=== PATIENT | female | born 1975 | race Caucasian/White ===

== ENCOUNTER 2020-05-19 08:20 | Outpatient (CLI) | payer OTHER ==
--- NOTE | 2020-05-28 14:10 | Mammography Report ---
BILATERAL DIGITAL SCREENING MAMMOGRAM 3D/2D: 05/19/2020 CLINICAL: Routine screening. No prior exams were available for comparison. The tissue of both breasts is heterogeneously dense. T his may lower the sensitivity of mammography. No significant masses, calcifications, or other findings are seen in either breast. IMPRESSION: NEGATIVE There is no mammographic evidence of malignancy. A 1 year screening mammogram is recommended. This exam was interpreted at Station ID: [id number]. NOTE: For mammograms, a report in lay terms will be sent to the patient. Approximately 15% of breast malignancies will not be visualized mammographically. In the management of a palpable breast mass, a negative mammogram must not discourage biopsy of a clinically suspicious lesion. Electronically Signed By: Patrick Glover M.D., jr/janie:05/28/2020 08:14:13 ACR BI-RADS Category 1: Negative 3341F PARENCHYMAL PATTERN: (D) - The breast(s) demonstrate(s) heterogeneously dense fibroglandular priya da silva. BI-RADS CATEGORY: (1) - 1 RECOMMENDATION: (ANNUAL) - Recommend routine annual screening mammography. [id number] 1 year screening LATERALITY: (B)
== END 2020-05-19 08:21 | disposition home or self-care (01) ==
LOC: DI 08:20
DX: Z12.31 Encounter for screening mammogram for malignant neoplasm of breast (principal)

== ENCOUNTER 2022-05-29 07:11 | Outpatient (CLI) | payer OTHER ==
--- NOTE | 2022-05-31 09:06 | MRI Report ---
PROCEDURE: SHOULDER WO - RT INDICATIONS: RIGHT SHOULDER PAIN TECHNIQUE: Noncontrast oblique coronal T2 fast spin echo with fat saturation, oblique sagittal T1 spin echo and T2 fast spin echo with fat saturation, axial T1 spin echo and T2 fast spin echo with fat saturation t hrough the shoulder. COMPARISON: None. FINDINGS: Image quality: Excellent. Rotator cuff: There is mild T2 signal elevation within the supraspinatus and infraspinatus tendons at the humeral insertion sites extending the muscular tendinous junction, indicating tendinopathy. Ther e is low-grade intrasubstance and articular surface tearing of the anterior and mid supraspinatus ten dons at the humeral insertion sites extending the muscular tendinous junction. There is low-grade par tial thickness intrasubstance tearing of the anterior infraspinatus tendon at the muscular tendinous junction. The subscapularis and teres minor tendons are intact. Bones and bursae: No bone marrow contusions or fractures. There is moderate acromioclavicular joint degeneration. The acromion demonstrates conventional anatomy, without an os acromiale. No pathologi c subacromial/subdeltoid bursal fluid is present. Capsule and soft tissues: In the absence of intra-articular contrast, the labrum and glenohumeral li gaments appear intact. The long head of the biceps tendon demonstrates normal location and split-typ e tearing. The rotator interval appears normal, without fibrosis. The coracohumeral ligament is norm al in thickness. IMPRESSION: 1. Supraspinatus and infraspinatus tendinopathy. Superimposed low-grade partial-thickness tearing of the supraspinatus and infraspinatus tendons. No full-thickness rotator cuff tear. 2. Split-type tearing of the biceps tendon. 3. Acromioclavicular joint osteoarthritis. Reviewed by: Natalie Lemos MD on 05/31/2022 9:05 AM PST Approved by: Natalie Lemos MD on 05/31/2022 9:05 AM PST Station ID: [id number]
== END 2022-05-29 07:12 | disposition home or self-care (01) ==
LOC: DI 07:11
PROVIDERS: ATTEND Family Medicine
DX: M75.111 Incomplete rotator cuff tear or rupture of right shoulder, not specified as traumatic (principal); S46.211A Strain of muscle, fascia and tendon of other parts of biceps, right arm, initial encounter; M19.011 Primary osteoarthritis, right shoulder